=== PATIENT | male | born 1960 | race Hispanic/Latino ===

== ENCOUNTER 2021-03-14 09:12 | Emergency (ER) | payer OTHER ==
[2021-03-14] MEDS ORDERED: DEXAMETHASONE SOD PHOSPHATE 10MG/ML 1ML VIAL ONE (11:25)
[2021-03-14] MEDS ORDERED: KETOROLAC TROMETHAMINE 60 MG/2 ML VIAL ONE (11:26)
[2021-03-14] MEDS ORDERED: ORPHENADRINE CITRATE 30 MG/ML ML ONE (11:26)
== END 2021-03-14 14:13 | disposition home or self-care (01) ==
LOC: EDH 09:12
DX: M79.2 Neuralgia and neuritis, unspecified (principal); G89.29 Other chronic pain; M54.5 Low back pain; M54.2 Cervicalgia
CPT/HCPCS: 72125; 73110; 96372 ×3; 99284; J1100; J1885; J2360

== ENCOUNTER → 2023-08-16 | Outpatient (CLI) | payer OTHER ==
[~2023-08-16] MED LIST: GADOTERATE MEGLUMINE 10 MMOL/20 ML VIAL IV ONE
== END | disposition home or self-care (01) ==
LOC: RAH 10:57
PROVIDERS: ATTEND Family Medicine
DX: M48.02 Spinal stenosis, cervical region (principal); R29.898 Other symptoms and signs involving the musculoskeletal system; M47.22 Other spondylosis with radiculopathy, cervical region
CPT/HCPCS: 72156; A9575

== ENCOUNTER 2023-10-09 07:41 | Emergency (ER) | payer OTHER ==
[~2023-10-09] VITALS: Ht 172.7 cm; Wt 79.4 kg
[2023-10-09 08:07] LABS: BASOPHILS # (AUTO) 0.05 K/uL (0.00-0.20); BASOPHILS % (AUTO) 0.6 % (0.0-5.0); EOSINOPHILS # (AUTO) 0.15 K/uL (0.00-0.70); EOSINOPHILS % (AUTO) 1.8 % (0.0-8.0); HEMATOCRIT 33.4 % (42-54); IMMATURE GRANULOCYTE ABSOLUTE 0.04 K/uL (0-1); LYMPHOCYTES # (AUTO) 1.3 K/uL (1.0-4.8); LYMPHOCYTES % (AUTO) 15.9 % (21.0-51.0); MEAN CORPUSCULAR HEMOGLOBIN 30.6 pg (27.0-33.0); MEAN CORPUSCULAR HGB CONC 33.5 g/dL (32.0-36.0); MEAN CORPUSCULAR VOLUME 91.3 fL (79-99); MONOCYTES # (AUTO) 0.5 K/uL (0.1-1.0); MONOCYTES % (AUTO) 6.4 % (3.0-13.0); NEUTROPHILS # (AUTO) 6.3 K/uL (1.8-7.7); NEUTROPHILS % (AUTO) 74.8 % (40.0-77.0); PLATELET COUNT (AUTO) 175 K/uL (130-400); RED BLOOD CELL COUNT(AUTO) 3.66 MIL/uL (4.50-6.20); RED CELL DISTRIBUTION WIDTH 12.6 % (11.0-15.5); WHITE BLOOD COUNT (AUTO) 8.4 K/uL (4.8-10.8)
[2023-10-09 08:28] LABS: ALBUMIN 3.7 g/dL (3.5-5.0); BILIRUBIN,TOTAL 0.2 mg/dL (0.2-1.0); CREATININE 1.3 mg/dL (0.5-1.5); POTASSIUM 4.5 mmol/L (3.5-5.1); TOTAL PROTEIN, SERUM 6.9 g/dL (6.0-8.3)
[2023-10-09 09:18] VITALS: BP 115/52; PULSE 77; RESP 18; O2SAT 98
[2023-10-09] MEDS ORDERED: PANT40TA54 PO (09:29)
== END 2023-10-09 09:41 | disposition home or self-care (01) ==
LOC: EDH 07:41
DX: R07.89 Other chest pain (principal); K21.9 Gastro-esophageal reflux disease without esophagitis; E11.9 Type 2 diabetes mellitus without complications; E78.00 Pure hypercholesterolemia, unspecified; I10 Essential (primary) hypertension
CPT/HCPCS: 36415; 71045; 80053; 84484; 85025; 93005

== ENCOUNTER → 2024-03-14 | Outpatient (CLI) | payer OTHER ==
[~2024-03-14] MED LIST changes: -GADOTERATE MEGLUMINE 10 MMOL/20 ML VIAL IV ONE; +PANT40TA54 PO
== END | disposition home or self-care (01) ==
LOC: RAH 10:57
PROVIDERS: ATTEND Physical Medicine & Rehabilitation
DX: M47.816 Spondylosis without myelopathy or radiculopathy, lumbar region (principal); M51.36 Other intervertebral disc degeneration, lumbar region
CPT/HCPCS: 72114